=== PATIENT | female | born 1965 | race Native Hawaiian/Other Pacific Islander ===

== ENCOUNTER 2019-09-04 10:03 | Emergency (ER) | payer OTHER ==
[~2019-09-04] VITALS: Ht 170.2 cm; Wt 90.7 kg
[2019-09-04 11:00] VITALS: BP 154/86; TEMP 98.1
== END 2019-09-04 11:11 | disposition home or self-care (01) ==
LOC: ED 10:03
DX: N39.0 Urinary tract infection, site not specified (principal)
CPT/HCPCS: 81000; 81025; 87077; 87086; 87088; 87186; 96372; 99282; J0696

== ENCOUNTER 2021-07-22 20:18 | Emergency (ER) | payer OTHER ==
[~2021-07-22] VITALS: Ht 170.2 cm; Wt 90.7 kg
[2021-07-22 22:19] LABS: PLATELET COUNT 251 K/uL (152-353)
[2021-07-22 22:27] LABS: POTASSIUM 4.5 mmol/L (3.6-5.2)
[2021-07-23 00:18] VITALS: BP 138/61; TEMP 98.5
== END 2021-07-23 00:18 | disposition home or self-care (01) ==
LOC: ED 20:18
PROVIDERS: Emergency Medicine Emergency Medical Services
DX: I10 Essential (primary) hypertension (principal); R51.9 Headache, unspecified
CPT/HCPCS: 36415; 80048; 85027; 96360; 96361; 96375; 99284; J1885; J3490